=== PATIENT | male | born 1950 | race Caucasian/White ===

== ENCOUNTER → 2021-06-21 | Outpatient (CLI) | payer MEDICARE ==
[~2021-06-21] MED LIST: FLAGYL500 MG PO; K-DUR TAB 20 M20 MEQ PO; LEVAQUIN TAB 5500 MG PO; ZOFRAN ODT 4 MG4 MG SL
== END ==
LOC: KOH-I 10:08
DX: M25.551 Pain in right hip (principal); M87.9 Osteonecrosis, unspecified; M25.451 Effusion, right hip
CPT/HCPCS: 73721